=== PATIENT | female | born 1970 | race Caucasian/White ===

== ENCOUNTER 2017-05-14 18:43 | Emergency (ER) | payer BC, OTHER ==
[~2017-05-14] VITALS: Ht 162.6 cm; Wt 55.0 kg
[~2017-05-14 18:43] MED LIST: CIPR500T4 PO; METR70GE15 VAG
[2017-05-14 19:09] VITALS: Ht 162.6 cm; Wt 55.0 kg
--- NOTE | 2017-05-14 19:45 | ERD ---
ER Documentation Chief Complaint Chief Complaint vag bleed x 5 days; pt denies being ; pt said this is not new ROS All systems reviewed and are negative except as per history of present illness. Medications Home Meds Active Scripts Metronidazole* (Metrogel* Vaginal) 0.75% -70 Gram Gel.w.appl, 1 APPFUL VAG HS for 5 Days, TUB Prov:CAROLE FAJARDO PA-C 11/24/15 Ciprofloxacin Hcl* (Ciprofloxacin Hcl*) 500 Mg Tablet, 500 MG PO BID for 3 Days , TAB Prov:CAROLE FAJARDO PA-C 11/24/15 Allergies Allergies: Coded Allergies: No Known Allergy (Unverified , 11/24/15) PMhx/Soc Medical and Surgical Hx: pt denies Medical Hx, pt denies Surgical Hx History of Surgery: Yes (CSECTION) Anesthesia Reaction: No Hx Neurological Disorder: No Hx Respiratory Disorders: No Hx Cardiac Disorders: No Hx Psychiatric Problems: No Hx Miscellaneous Medical Probl: No Hx Alcohol Use: No Hx Substance Use: No Hx Tobacco Use: No Smoking Status: Never smoker Physical Exam Vitals Vital Signs Date Time Temp Pulse Resp B/P Pulse Ox O2 Delivery O2 Flow Rate FiO2 05/14/17 19:09 98.4 98 20 105/77 100 Result Diagram: 05/14/17203405/14/172034 Results 24 hrs Laboratory Tests Test 05/14/17 20:00 05/14/17 20:35 Urine Color YELLOW Urine Clarity CLEAR Urine pH 5.0 Urine Specific [place] 1.017 Urine Ketones 1+mg/dL Urine Nitrite NEGATIVEmg/dL Urine Bilirubin NEGATIVEmg/dL Urine Urobilinogen NEGATIVEmg/dL Urine Leukocyte Esterase NEGATIVELeu/ul Urine Microscopic RBC > 182/HPF Urine Microscopic WBC 6/HPF Urine Mucus FEW/HPF Urine Hemoglobin 3+mg/dL Urine Glucose NEGATIVEmg/dL Urine Total Protein 1+mg/dl White Blood Count 9.610^3/ul Red Blood Count 1.9010^6/ul Hemoglobin 5.5g/dl Hematocrit 17.1% Mean Corpuscular Volume 90.0fl Mean Corpuscular Hemoglobin 28.9pg Mean Corpuscular Hemoglobin Concent 32.2g/dl Red Cell Distribution Width 20.9% Platelet Count 88204^3/UL Mean Platelet Volume 10.1fl Neutrophils % % Lymphocytes % % Monocytes % % Eosinophils % % Basophils % % Nucleated Red Blood Cells % 0.0/100WBC Neutrophils # 10^3/ul Lymphocytes # 10^3/ul Monocytes # 10^3/ul Eosinophils # 10^3/ul Basophils # 10^3/ul Nucleated Red Blood Cells # 10^3/ul Prothrombin Time 14.6Sec Prothrombin Time Ratio 1.1 INR International Normalized Ratio 1.14 Activated Partial Thromboplast Time 20.0Sec Sodium Level 132mmol/L Potassium Level 4.2mmol/L Chloride Level 102mmol/L Carbon Dioxide Level 14mmol/L Anion Gap 20 Blood Urea Nitrogen 9mg/dl Creatinine 0.69mg/dl Glucose Level 143mg/dl Calcium Level 8.3mg/dl Current Medications Medications (Trade) Dose Ordered Sig/Itz Route PRN Reason Start Time Stop Time Status Last Admin Dose Admin Sodium Chloride (NS) 1,000 ml @ 1,000 mls/hr Q1H ONCE IV 05/14/17 20:00 05/14/17 20:59 DC Estradiol Valerate (Delestrogen Inj) 20 mg ONCE ONCE IM 05/14/17 21:30 05/14/17 21:31 Departure Diagnosis: Primary Impression: Vaginal bleeding JAYRO TAMAYO PA-C May 14, 2017 19:45
[2017-05-14] MEDS ORDERED: SOD CHLORIDE 0.9% 1,000 ML IV ONE (20:00)
--- NOTE | 2017-05-14 20:19 | RADRPT ---
PROCEDURE: US Pelvis. CLINICAL INDICATION: Abnormal vaginal bleeding. TECHNIQUE: The pelvis was evaluated with transabdominal and transvaginal sonography in the axial a nd sagittal planes. COMPARISON: CT scan of the abdomen and pelvis dated 05/11/2012. FINDINGS: Uterus: 8.2 x 4.5 x 5.3 cm. Endometrium: 10.8 mm. Right ovary: 3.2 x 2.1 x 2.2 cm. Left ovary: 3.2 x 1.7 x 1.3 cm. Uterine masses: The uterus is heterogeneous with multiple small fibroids. The largest fibroid measur es 3.2 cm in maximal dimension. Ovarian masses: None. Color Doppler and pulsed Doppler sonography demonstrate normal flow to the ova kurt. Other pelvic masses: None. Free fluid: A small amount of free fluid is present in the pelvis. IMPRESSION: 1. Diffusely heterogeneous uterus with multiple small fibroids. The largest fibroid measures 3.2 cm . 2. Small amount of free fluid in the pelvis. 3. Otherwise unremarkable pelvic ultrasound. RPTAT: QQ .Aramis Mckeon MD, Date Time Electronically viewed and signed by .Aramis Mckeon MD, MD on 05/14/2017 20:18 .R/
[2017-05-14 20:55] LABS: ABNORMAL IP MESSAGE 1; HEMATOCRIT 17.1 % (37.0-47.0); MEAN CORPUSCULAR HEMOGLOBIN 28.9 pg (29.0-33.0); MEAN CORPUSCULAR HGB CONC 32.2 g/dl (32.0-37.0); MEAN PLATELET VOLUME 10.1 fl (7.4-10.4); PLATELET COUNT 194 10^3/UL (140-415); RED CELL DISTRIBUTION WIDTH 20.9 % (11.5-14.5); WHITE BLOOD COUNT 9.6 10^3/ul (4.8-10.8)
[2017-05-14 20:58] LABS: HEMOGLOBIN 5.5 g/dl (12.0-16.0); POSITIVE DIFF @See below
[2017-05-14 20:59] LABS: ADD UMIC YES; UR ASCORBIC ACID 20 mg/dL (NEGATIVE); UR BILIRUBIN (Dip) NEGATIVE (NEGATIVE); UR BLOOD (Dip) 3+ mg/dL (NEGATIVE); UR CLARITY CLEAR (CLEAR); UR COLOR YELLOW (YELLOW); UR GLUCOSE (Dip) NEGATIVE (NEGATIVE); UR KETONES (Dip) 1+ mg/dL (NEGATIVE); UR LEUKOCYTE ESTERASE (Dip) NEGATIVE Leu/ul (NEGATIVE); UR MUCUS FEW /HPF (NONE SEEN); UR NITRITE (Dip) NEGATIVE (NEGATIVE); UR RBC > 182 /HPF (0-5); UR SPECIFIC GRAVITY (Dip) 1.017 (1.003-1.030); UR TOTAL PROTEIN (Dip) 1+ mg/dl (NEGATIVE); UR UROBILINOGEN (Dip) NEGATIVE (NEGATIVE)
[2017-05-14 21:07] LABS: INR 1.14; PROTIME 14.6 Sec (12.2-14.2); PT RATIO 1.1
[2017-05-14 21:10] LABS: CALCIUM 8.3 mg/dl (8.4-10.2); CREATININE 0.69 mg/dl (0.44-1.00); POTASSIUM 4.2 mmol/L (3.5-5.1)
--- NOTE | 2017-05-14 21:27 | ERD ---
ER Documentation Chief Complaint Chief Complaint vag bleed x 5 days; pt denies being ; pt said this is not new HPI This a 47-year-old female who is complaining of heavy vaginal bleeding for 5 days. Patient is a history of menometrorrhagia for nearly a year. Patient scheduled tomorrow for uterine biopsy. The patient's states she has been feeling weak and dizzy over the past several weeks. She states that she is having occasional cramps. She states that she is having no back pain no falls or syncope. No chest pain or shortness of breath no dyspnea on exertion ROS All systems reviewed and are negative except as per history of present illness. Medications Home Meds Active Scripts Metronidazole* (Metrogel* Vaginal) 0.75% -70 Gram Gel.w.appl, 1 APPFUL VAG HS for 5 Days, TUB Prov:CAROLE FAJARDO PA-C 11/24/15 Ciprofloxacin Hcl* (Ciprofloxacin Hcl*) 500 Mg Tablet, 500 MG PO BID for 3 Days , TAB Prov:CAROLE FAJARDO PA-C 11/24/15 Allergies Allergies: Coded Allergies: No Known Allergy (Unverified , 11/24/15) PMhx/Soc Medical and Surgical Hx: pt denies Medical Hx, pt denies Surgical Hx History of Surgery: Yes (CSECTION) Anesthesia Reaction: No Hx Neurological Disorder: No Hx Respiratory Disorders: No Hx Cardiac Disorders: No Hx Psychiatric Problems: No Hx Miscellaneous Medical Probl: No Hx Alcohol Use: No Hx Substance Use: No Hx Tobacco Use: No Smoking Status: Never smoker FmHx Family History: No coronary disease Physical Exam Vitals Vital Signs Date Time Temp Pulse Resp B/P Pulse Ox O2 Delivery O2 Flow Rate FiO2 05/14/17 21:55 98.1 81 19 106/70 100 Room Air 05/14/17 19:09 98.4 98 20 105/77 100 Physical Exam Const: Well-developed, well-nourished Head: Atraumatic, normocephalic Eyes: Normal Conjunctiva, PERRLA, EOMI, normal sclera, no nystagmus ENT: Normal External Ears, Nose and Mouth, moist mucus membranes. Neck: Full range of motion. No meningismus, no lymphadenopathy. Resp: Clear to auscultation bilaterally, no wheezing, rhonchi, rales Cardio: Regular rate and rhythm, no murmurs, S1 S2 present Abd: Soft, mild pelvic tenderness non distended. Normal bowel sounds, no guarding or rebound, no pulsitile abdominal masses or bruits Skin: No petechiae or rashes, no ecchymosis , no maculopapular rash Back: No midline or flank tenderness Ext: No cyanosis, or edema, FROM x 4, normal inspection, neurovascularly intact x 4 Neur: Awake and alert, STR 5/5 x 4, sensation intact x 4, no focal findings, cerebellum intact Psych: Normal Mood and Affect Result Diagram: 05/14/17203405/14/172034 Results 24 hrs Laboratory Tests Test 05/14/17 20:00 05/14/17 20:35 Urine Color YELLOW Urine Clarity CLEAR Urine pH 5.0 Urine Specific [place] 1.017 Urine Ketones 1+mg/dL Urine Nitrite NEGATIVEmg/dL Urine Bilirubin NEGATIVEmg/dL Urine Urobilinogen NEGATIVEmg/dL Urine Leukocyte Esterase NEGATIVELeu/ul Urine Microscopic RBC > 182/HPF Urine Microscopic WBC 6/HPF Urine Mucus FEW/HPF Urine Hemoglobin 3+mg/dL Urine Glucose NEGATIVEmg/dL Urine Total Protein 1+mg/dl White Blood Count 9.610^3/ul Red Blood Count 1.9010^6/ul Hemoglobin 5.5g/dl Hematocrit 17.1% Mean Corpuscular Volume 90.0fl Mean Corpuscular Hemoglobin 28.9pg Mean Corpuscular Hemoglobin Concent 32.2g/dl Red Cell Distribution Width 20.9% Platelet Count 66763^3/UL Mean Platelet Volume 10.1fl Neutrophils % % Segmented Neutrophils % (Manual) 83% Lymphocytes % % Lymphocytes % (Manual) 16% Monocytes % % Monocytes % (Manual) 1% Eosinophils % % Basophils % % Nucleated Red Blood Cells % 0.0/100WBC Neutrophils # 10^3/ul Absolute Lymphocytes (Manual) 1.510^3/ul Lymphocytes # 10^3/ul Monocytes # 10^3/ul Absolute Monocytes (Manual) 0.010^3/ul Eosinophils # 10^3/ul Basophils # 10^3/ul Nucleated Red Blood Cells # 10^3/ul Platelet Estimate NORMAL Polychromasia 1+ Hypochromasia 1+ Anisocytosis 1+ Microcytosis 1+ Prothrombin Time 14.6Sec Prothrombin Time Ratio 1.1 INR International Normalized Ratio 1.14 Activated Partial Thromboplast Time 20.0Sec Sodium Level 132mmol/L Potassium Level 4.2mmol/L Chloride Level 102mmol/L Carbon Dioxide Level 14mmol/L Anion Gap 20 Blood Urea Nitrogen 9mg/dl Creatinine 0.69mg/dl Glucose Level 143mg/dl Calcium Level 8.3mg/dl Current Medications Medications (Trade) Dose Ordered Sig/Itz Route PRN Reason Start Time Stop Time Status Last Admin Dose Admin Sodium Chloride (NS) 1,000 ml @ 1,000 mls/hr Q1H ONCE IV 05/14/17 20:00 05/14/17 20:59 DC 05/14/17 20:00 Estradiol Valerate (Delestrogen Inj) 20 mg ONCE ONCE IM 05/14/17 21:30 05/14/17 21:30 DC Estradiol Valerate (Delestrogen Inj) 20 mg ONCE ONCE IM 05/14/17 21:30 05/14/17 21:31 DC 05/14/17 22:02 Procedures/MDM PROCEDURE: US Pelvis. CLINICAL INDICATION: Abnormal vaginal bleeding. TECHNIQUE: The pelvis was evaluated with transabdominal and transvaginal sonography in the axial and sagittal planes. COMPARISON: CT scan of the abdomen and pelvis dated 05/11/2012. FINDINGS: Uterus: 8.2 x 4.5 x 5.3 cm. Endometrium: 10.8 mm. Right ovary: 3.2 x 2.1 x 2.2 cm. Left ovary: 3.2 x 1.7 x 1.3 cm. Uterine masses: The uterus is heterogeneous with multiple small fibroids. The largest fibroid measures 3.2 cm in maximal dimension. Ovarian masses: None. Color Doppler and pulsed Doppler sonography demonstrate normal flow to the ovaries. Other pelvic masses: None. Free fluid: A small amount of free fluid is present in the pelvis. IMPRESSION: 1. Diffusely heterogeneous uterus with multiple small fibroids. The largest fibroid measures 3.2 cm. 2. Small amount of free fluid in the pelvis. 3. Otherwise unremarkable pelvic ultrasound. RPTAT: QQ .Aramis Mckeon MD, MD Date Time Electronically viewed and signed by .Aramis Mckeon MD, MD on 05/14/2017 20:18 .R/ CC: JAYRO TAMAYO PA-C We will give some IM estrogen here. We will also give 2 units of packed red blood cells. After this the patient was discharged because she has follow-up with her OB GEN tomorrow, per her VB decreasing. Departure Diagnosis: Primary Impression: Dysfunctional uterine bleeding Additional Impression: Anemia Anemia type: unspecified type Qualified Code: D64.9 - Anemia, unspecified type Condition: Stable JOHN WEINBERG DO May 14, 2017 21:27
[2017-05-14 21:28] LABS: ANISOCYTOSIS 1+ (0-0); HYPOCHROMASIA 1+ (0-0); MICROCYTOSIS 1+ (0-0); MONOCYTES % (M) 1 % (0-11); PLATELET ESTIMATE NORMAL; POLYCHROMASIA 1+ (0-0)
[2017-05-14] MEDS ORDERED: ESTRADIOL VALERATE 20 MG/0.5 ML INJ IM ONE ×2 (21:30)
[2017-05-14] MEDS ORDERED: NORG1TAB14 PO (23:21)
[2017-05-15 02:31] VITALS: BP 101/59; PULSE 94; RESP 18; TEMP 98.3
== END 2017-05-15 02:34 | disposition home or self-care (01) ==
LOC: FTE 18:43
DX: N93.8 Other specified abnormal uterine and vaginal bleeding (principal); D64.9 Anemia, unspecified; R07.9 Chest pain, unspecified
CPT/HCPCS: 36430; 76856; 80048; 81001; 85025; 85610; 85730; 86850; 86900; 86901; 86920; 96372; 99285; J7030; P9016; J1380

== ENCOUNTER 2018-12-20 23:15 | Inpatient (IN) | payer BC ==
[~2018-12-20] VITALS: Ht 144.8 cm; Wt 58.3 kg
[~2018-12-20 23:15] MED LIST changes: +NORG1TAB14 PO
[2018-12-20] MEDS ORDERED: SOD CHLORIDE 0.9% 500 ML IV STA (23:55)
[2018-12-21] MEDS ORDERED: SOD CHLORIDE 0.9% 0 ML IV ONE (00:25)
--- NOTE | 2018-12-21 00:35 | ERD ---
ER Documentation Chief Complaint Chief Complaint DIZZINESS X TODAY. HPI This is a 48-year-old female with a past medical history of uterine fibroids with previous episodes of significant uterine bleeding and anemia, currently on control who is now presenting for 2 days of significant heavy menstrual bleeding with associated lightheadedness today. The patient feels generally weak and fatigued. She is concerned about the amount of bleeding that she has had. The patient does not believe she could be . She does not believe she could have a sexually transmitted infection. The patient does not endorse dysuria or hematuria or urgency or frequency. She denies constipation or diarrhea. She denies black or bloody or tarry stools. The patient denies feeling sick recently. The patient denies fever or chills. The patient has had no headache or vision changes. The patient does not endorse neck or back pain. The patient has had no chest pain or trouble breathing. The patient denies nausea or vomiting. She denies diaphoresis. The patient has had no focal deficits. The patient has had no weakness or numbness or tingling to the face or extremities. ROS All systems reviewed and are negative except as per history of present illness. Medications Home Meds Active Scripts Norgestimate-Ethinyl Estradiol (Sprintec 28 Day Tablet) 1 Each Tablet, 2 EACH PO BID for 3 Days, TAB 2 po BID x 3 days, then 1 po QD, Skip the last week of pills and restart new pack at 1 po QD Prov:JOHN WEINBERG DO 05/14/17 Metronidazole* (Metrogel* Vaginal) 0.75% -70 Gram Gel.w.appl, 1 APPFUL VAG HS for 5 Days, TUB Prov:CAROLE FAJARDO PA-C 11/24/15 Ciprofloxacin Hcl* (Ciprofloxacin Hcl*) 500 Mg Tablet, 500 MG PO BID for 3 Days, TAB Prov:CAROLE FAJARDO PA-C 11/24/15 Allergies Allergies: Coded Allergies: No Known Allergy (Unverified , 11/24/15) PMhx/Soc History of Surgery: Yes (CSECTION) Anesthesia Reaction: No Hx Neurological Disorder: No Hx Respiratory Disorders: No Hx Cardiac Disorders: No Hx Psychiatric Problems: No Hx Miscellaneous Medical Probl: Yes (FIBROIDS) Hx Alcohol Use: No Hx Substance Use: No Hx Tobacco Use: No Smoking Status: Never smoker FmHx Family History: No diabetes Physical Exam Vitals Vital Signs Date Temp Pulse Resp B/P (MAP) Pulse Ox O2 O2 Flow FiO2 Time Delivery Rate 12/21/18 84 18 105/67 Room Air 00:00 (80) 12/20/18 98.4 97 18 121/67 98 23:25 (85) Physical Exam Const: No apparent distress, well-developed, well-nourished Head: Normocephalic, Atraumatic Eyes: Conjunctival pallor. Extraocular movements grossly intact. Pupils equal, round and reactive to light ENT: Normal External Ears, Nose and Mouth. Neck: Full range of motion. No meningismus. Resp: Clear to auscultation bilaterally, No wheezes, rales or rhonchi Cardio: Regular rate and rhythm. No murmurs, rubs or gallops Abd: Soft, non distended. Mild suprapubic fullness and tenderness. Normal bowel sounds Skin: No petechiae or rashes Back: No midline tenderness. No CVA tenderness Ext: No cyanosis, or edema Neur: Awake and alert, oriented 4. Cranial nerves intact. No facial droop. Normal strength, sensation and coordination. Psych: Normal Mood and Affect Result Diagram: 12/21/18 0004 12/21/18 0004 Results 24 hrs Laboratory Tests Test 12/21/18 00:04 12/21/18 00:11 White Blood Count 7.8 10^3/ul Red Blood Count 2.32 10^6/ul Hemoglobin 6.7 g/dl Hematocrit 19.8 % Mean Corpuscular Volume 85.3 fl Mean Corpuscular Hemoglobin 28.9 pg Mean Corpuscular Hemoglobin Concent 33.8 g/dl Red Cell Distribution Width 15.4 % Platelet Count 240 10^3/UL Mean Platelet Volume 9.9 fl Immature Granulocytes % 1.000 % Neutrophils % 46.6 % Lymphocytes % 40.7 % Monocytes % 8.6 % Eosinophils % 2.3 % Basophils % 0.8 % Nucleated Red Blood Cells % 0.0 /100WBC Immature Granulocytes # 0.080 10^3/ul Neutrophils # 3.6 10^3/ul Lymphocytes # 3.2 10^3/ul Monocytes # 0.7 10^3/ul Eosinophils # 0.2 10^3/ul Basophils # 0.1 10^3/ul Nucleated Red Blood Cells # 0.0 10^3/ul Pathologist Review (Hematology) YES-PATH TO CONFIRM Prothrombin Time 13.1 Sec Prothrombin Time Ratio 1.0 INR International Normalized Ratio 0.98 Activated Partial Thromboplast Time Pending Sodium Level 137 mmol/L Potassium Level 3.6 mmol/L Chloride Level 105 mmol/L Carbon Dioxide Level 22 mmol/L Anion Gap 10 Blood Urea Nitrogen 9 mg/dl Creatinine 0.60 mg/dl Est Glomerular Filtrat Rate mL/min > 60 mL/min Glucose Level 120 mg/dl Calcium Level 8.4 mg/dl POC Beta HCG, Qualitative NEGATIVE Current Medications Medications Dose Sig/Itz Start Time Status Last (Trade) Ordered Route PRN Stop Time Admin Dose Reason Admin Sodium 500 ml @ Q1H STAT 12/20/18 DC 12/21/18 Chloride 500 mls/hr IV 23:55 12/21/18 00:00 00:54 Sodium 0 ml @ 0 Q0M ONCE 12/21/18 DC 12/21/18 Chloride mls/hr IV 00:25 12/21/18 02:04 00:27 Ondansetron 4 mg BRIDGE ORDER 12/21/18 HCl (Zofran PRN IV 01:00 12/22/18 Inj) NAUSEA/VOMITI 00:59 NG 650 mg ER BRIDGE 12/21/18 Acetaminophen PRN PO 01:00 12/22/18 (Tylenol .MILD PAIN 00:59 Tab) 1-3 OR TEMP Procedures/MDM MDM The patient's presentation warrants further investigation. Previous medical records, if available, were reviewed. LABS The patient's laboratory testing was obtained and reviewed. No emergent treatment was required unless described below. CBC: No E/o systemic infection or thrombocytopenia. Normocytic anemia, likely from blood loss anemia from her vaginal bleeding. Chemistry: No E/o severe acidosis or alkalosis or renal failure or diabetic ketoacidosis PT/INR: No E/o significant coagulopathy hCG: Negative Type & screen: Sent EKG EKG read by me: Rate/Rhythm: Regular rate and rhythm at a rate of 88 bpm Intervals: Normal [place]: Normal Impression: No evidence of acute ischemia or arrhythmia IMAGING Imaging and Radiology interpretation reviewed. US Pelvis Pending TREATMENT/DISPOSITION The patient presents for symptoms of near syncope, which is likely associated with her symptomatic anemia from vaginal bleeding. The patient does have a history of fibroids. The patient does require blood transfusion. She was consented and the transfusion was ordered. The patient will require gynecology evaluation. Dr. Kang of Gynecology was consulted. The results of the pelvic ultrasound are currently pending. ADMISSION At this time, I feel that the patient requires admission for further evaluation and management. The patient will be admitted to Dr. Givens in accordance with the patient's insurance. The patient was accepted to Med Surg 12:50 AM. Disclaimer: Inadvertent spelling and grammatical errors are likely due to [employer] R/dictation software use and do not reflect on the overall quality of patient care. Note that the electronic time recorded on this note does not necessarily reflect the actual time of the patient encounter. Departure Diagnosis: Primary Impression: Near syncope Additional Impressions: Symptomatic anemia Vaginal bleeding Lightheadedness Normocytic anemia History of uterine fibroid Condition: MIHAI Clemens MD Dec 21, 2018 00:35
[2018-12-21] MEDS ORDERED: ACETAMINOPHEN 325 MG TAB PO PRN ×2 (01:00→03:30)
[2018-12-21] MEDS ORDERED: ONDANSETRON 4 MG INJ IV PRN (01:00)
[2018-12-21 02:49] VITALS: Ht 144.8 cm; Wt 58.3 kg
[2018-12-21] MEDS ORDERED: IBUP-1545 PO (03:13)
[2018-12-21] MEDS ORDERED: HYDROCODONE/APAP (5/325) TAB PO PRN (03:30)
[2018-12-21 03:33] VITALS: BP 152/73; PULSE 103; RESP 19
--- NOTE | 2018-12-21 06:17 | CONS ---
Assessment/Plan Assessment/Plan Problems: (1) Normocytic anemia Status: Acute (2) History of uterine fibroid Status: Acute (3) Lightheadedness Status: Acute (4) Vaginal bleeding Status: Acute (5) Near syncope Status: Acute (6) Symptomatic anemia Status: Acute Assessment/Plan (Daily) 1. Severe anemia due to menometrorrhagia . Patient failed medical management with OCP, ultrasound finding consistent with possible submucosal fibroid Receiving blood transfusion due to symptomatic anemia Candidate for D&C with possible hysteroscopy and resection of fibroid Plan of care discussed with the patient. Risks and benefits of surgery discussed with patient including risk of infection, bleeding, damage to surrounding structures as well as risk of uterine perforation and risk of blood transfusion as well as risk of need for additional surgical management, risk of scar, pain, anesthesia as well as risk of blood transfusion including but not limited to blood borne infection including HIV, hepatitis B and C and transfusion reaction discussed with patient in detail Patient verbalized understanding all above risks she consented verbally for proc edure We will keep the patient n.p.o. Will attempt Megace 20 mg 3 times daily with sip of water to control the bleeding Candidate for hysteroscopy, D&C and resection of fibroid I discussed with the patient about the plan of care. If bleeding continues heavily still might need to proceed with the OR urgently if not consider above procedure after completion of blood transfusion Dr. Silver is the Primary POWER LINE LINEMAN, will be notified, patient understands her case will be signed out to the upcoming OB hospitalist as well for follow-up and above said procedure may be done by [facility] hospitalist in case of urgency. All questions were answered to patient with satisfaction. We are checking thyroid labs to rule out hyperthyroidism, as a cause for menometrorrhagia Consultation Date/Type/Reason Admit Date/Time Dec 21, 2018 at 00:54 Date of Consultation: Dec 21, 2018 Type of Consult Gynecology consultation Date/Time of Note DATE: 12/21/18 TIME: 06:09 Hx of Present Illness 48-year-old G1, P2 premenopausal female presented to emergency room with complaint of fatigue and dizziness and lightheadedness after she had worsening menometrorrhagia for the last 3 to 4 days. She was seen at her PCP office and advised to go to emergency room for blood transfusion. Patient reports this is her second episode of emergency room visit recently. Reports history of menometrorrhagia for the past 1 and half years. Status post endometrial biopsy with her prior records [facility] about 1 and half years ago that per patient was benign. Patient currently receiving blood transfusion due to hemoglobin 6.7 noted in the ED at the time of admission. Patient reports improvement in her symptoms. Patient denies any known history of thyroid problem in the past. Reports history of fibroids. Had a pelvic ultrasound in this facility that showed evidence of heterogeneous endometrium as well as intrauterine mass 2.7 cm questionable for possible submucosal fibroid. Constitutional: no complaints, improved; No chills, No diaphoresis, No disoriented, No febrile, No poor po, No requi ring IVF, No requiring O2, No other Eyes: No no complaints, No pain, No discharge, No redness, No visual change, No other ENT: No no complaints, No bleeding, No pain, No congestion, No discharge, No dysphagia, No sore throat, No other Respiratory: No no complaints, No pain, No cough, No pleuritic pain, No shortness of breath, No sputum, No wheezing, No other Cardiovascular: No no complaints, No chest pain, No edema, No lightheadedness, No orthopenea, No palpitations, No paroxysmal nocturnal dyspnea, No other Gastrointestinal: No no complaints, No pain, No blood, No constipation, No d ecreased appetite, No diarrhea, No flatus, No nausea, No passing stool, No vomiting, No other Genitourinary: bleeding; No no complaints, No dysuria, No discharge, No flank pain, No hematuria, No other Musculoskeletal: No no complaints, No back pain, No bone/joint pain, No neck pain, No restricted range of motion, No swelling, No other Skin: No no complaints, No bruising, No erythema, No laceration, No pruritis, No rash, No skin lesions, No other Neurologic: No no complaints, No confusion, No dizziness, No focal-weakness, No headache, No syncope, No seizure, No other Endocrine: No no complaints, No polyuria, No polydypsia, No dry skin, No temp intolerance, No other Lymphatic: No no complaints, No adenopathy, No tender nodes, No lymphadema, No other Psychological: No no complaints, No nl mood/affect, No anxiety, No confusion, No depression, No suicidal, No other Immunologic: No no complaints, No immunodeficiency, No pruritis, No rhinitis, No urticaria, No other Past Medical History She reports history of anemia menometrorrhagia Reports history of fibroid Home Meds Active Scripts Norgestimate-Ethinyl Estradiol (Sprintec 28 Day Tablet) 1 Each Tablet, 2 EACH PO BID for 3 Days, TAB 2 po BID x 3 days, then 1 po QD, Skip the last week of pills and restart new pack at 1 po QD Prov:JOHN WEINBERG DO 05/14/17 Metronidazole* (Metrogel* Vaginal) 0.75% -70 Gram Gel.w.appl, 1 APPFUL VAG HS for 5 Days, TUB Prov:CAROLE FAJARDO PA-C 11/24/15 Ciprofloxacin Hcl* (Ciprofloxacin Hcl*) 500 Mg Tablet, 500 MG PO BID for 3 Days, TAB Prov:CAROLE FAJARDO PA-C 11/24/15 Reported Medications Ibuprofen* (Ibuprofen*) 800 Mg Tab, 800 MG PO Q6H PRN for PAIN, TAB 12/21/18 Medications Current Medications Ondansetron HCl (Zofran Inj) 4 mg BRIDGE ORDER PRN IV NAUSEA/VOMITING; Start 12/21/18 at 01:00; Stop 12/22/18 at 00:59 Acetaminophen (Tylenol Tab) 650 mg ER BRIDGE PRN PO .MILD PAIN 1-3 OR TEMP; Start 12/21/18 at 01:00; Stop 12/22/18 at 00:59 Acetaminophen (Tylenol Tab) 650 mg Q4H PRN PO MILD PAIN(1-3)OR ELEVATED TEMP; Start 12/21/18 at 03:30 Acetaminophen/ Hydrocodone Bitart ([place] (5/325)) 1 tab Q4H PRN PO MODERATE PAIN LEVEL 4-6; Start 12/21/18 at 03:30 Allergies: Coded Allergies: No Known Allergy (Unverified , 11/24/15) Past Surgical History Status post section for twin in the past Family History Significant Family History: no pertinent family hx Social History Alcohol Use: occasionally Smoking Status: Never smoker Drug Use: none Exam/Review of Systems Exam Vitals Vital Signs Date Temp Pulse Resp B/P (MAP) Pulse Ox O2 O2 Flow FiO2 Time Delivery Rate 12/21/18 98.8 103 19 152/73 99 03:33 (99) 12/21/18 Room Air 02:18 Intake and Output 12/20/18 12/20/18 12/21/18 1515:00 23:00 07:00 IntakeIntake Total 550 ml BalanceBalance 550 ml Constitutional: alert, oriented, well developed Psych: no complaints, nl mood/affect Head: normocephalic, atraumatic Eyes: nl conjunctiva, EOMI, nl lids ENMT: nl external ears & nose, nl lips & teeth, nl nasal mucosa & septum Neck: supple, non-tender Respiratory: clear to auscultation, normal air movement Cardiovascular: regular rate and rhythm, nl pulses Gastrointestinal: soft, nl liver, spleen, non-tender Genitourinary - Female: nl adnexae, nl external genitalia Musculoskeletal: nl extremities to inspection, nl gait and stance Extremities: normal pulses Neurological: FUEL CELL TECHNICIAN II-XII intact, nl mental status, nl speech, nl strength Skin: nl turgor, rash or lesions Results Result Diagram: 12/21/18 0004 12/21/18 0004 Results 24hrs Laboratory Tests Test 12/21/18 00:04 12/21/18 00:11 White Blood Count 7.8 Red Blood Count 2.32 #L Hemoglobin 6.7 #*L Hematocrit 19.8 L Mean Corpuscular Volume 85.3 Mean Corpuscular Hemoglobin 28.9 L Mean Corpuscular Hemoglobin Concent 33.8 Red Cell Distribution Width 15.4 #H Platelet Count 240 # Mean Platelet Volume 9.9 Immature Granulocytes % 1.000 H Neutrophils % 46.6 Segmented Neutrophils % (Manual) 60 Lymphocytes % 40.7 Lymphocytes % (Manual) 35 Monocytes % 8.6 Monocytes % (Manual) 3 Eosinophils % 2.3 Eosinophils % (Manual) 2 Basophils % 0.8 Nucleated Red Blood Cells % 0.0 Immature Granulocytes # 0.080 H Neutrophils # 3.6 Lymphocytes (Manual) 2.7 Lymphocytes # 3.2 H Monocytes # 0.7 Monocytes # (Manual) 0.2 L Eosinophils # 0.2 Basophils # 0.1 Nucleated Red Blood Cells # 0.0 Pathologist Review (Hematology) YES-PATH TO CONFIRM Platelet Estimate NORMAL Giant Platelets 1 H Polychromasia 1+ Anisocytosis 1+ Prothrombin Time 13.1 Prothrombin Time Ratio 1.0 INR International Normalized Ratio 0.98 Activated Partial Thromboplast Time 20.0 L Sodium Level 137 Potassium Level 3.6 Chloride Level 105 Carbon Dioxide Level 22 Anion Gap 10 Blood Urea Nitrogen 9 Creatinine 0.60 Est Glomerular Filtrat Rate mL/min > 60 Glucose Level 120 Calcium Level 8.4 POC Beta HCG, Qualitative NEGATIVE PROCEDURE: Pelvic ultrasound color-flow Doppler of the adnexa. CLINICAL INDICATION: Vaginal bleeding TECHNIQUE: Multiple sagittal, oblique and transverse real time images were obtained of the lower abdomen and pelvis using a transabdominal as well a transvaginal approach. Color-flow Doppler of the adnexa was performed COMPARISON: Pelvic ultrasound 05/14/2017 FINDINGS: The uterus is enlarged measuring 9.91 x 4.59 x 5.19 cm. Myometrial echoes are heterogeneous with multiple leiomyomas the largest measuring 3.7 cm. Note that the endometrium is heterogeneous and thickened maximal AP diameter 1.51 cm. In addition within the endometrium is a 2.8 x 1.6 cm globular heterogeneous echogenic structure with increased vascularity likely a polyp. A pedunculated leiomyoma extending into the endometrium cannot be excluded. Recommend consideration of a pelvic MRI or hysterosonogram for further evaluation. Additional trace fluid within the endometrial canal. The ovaries are normal in size the right measuring 2.68 x 1.52 x 2.01 cm and the left measuring 2.6 x 1.3 x 1.61 cm. No ovarian masses. Flow to both ovaries without ultrasonic evidence of ovarian torsion. No adnexal masses or free fluid. IMPRESSION: 1. Enlarged heterogeneous uterus with multiple leiomyomas the largest measuring 3.7 cm. 2. Heterogeneous endometrium with trace fluid and a Z globular inhomogeneous vascular structure measuring 2.8 x 1.6 cm that may represent a polyp or pedunculated leiomyoma. Other etiologies cannot be excluded. Recommend consideration of an MRI of the pelvis or hysterosonogram for further evaluation. 3. Normal size ovaries without masses or ultrasonic evidence of ovarian torsion. 4. No adnexal masses or free fluid. Medications Medication Current Medications Ondansetron HCl (Zofran Inj) 4 mg BRIDGE ORDER PRN IV NAUSEA/VOMITING; Start 12/21/18 at 01:00; Stop 12/22/18 at 00:59 Acetaminophen (Tylenol Tab) 650 mg ER BRIDGE PRN PO .MILD PAIN 1-3 OR TEMP; Start 12/21/18 at 01:00; Stop 12/22/18 at 00:59 Acetaminophen (Tylenol Tab) 650 mg Q4H PRN PO MILD PAIN(1-3)OR ELEVATED TEMP; Start 12/21/18 at 03:30 Acetaminophen/ Hydrocodone Bitart ([place] (5/325)) 1 tab Q4H PRN PO MODERATE PAIN LEVEL 4-6; Start 12/21/18 at 03:30 VJ NEGRON MD Dec 21, 2018 06:17
[2018-12-21 08:00] VITALS: BP 126/69; PULSE 83; RESP 16
[2018-12-21] MEDS ORDERED: MEGESTROL 40 MG TAB PO ONE (09:00)
[2018-12-21] MEDS: SOD CHLORIDE 0.9% 1,000 ML IV SCH ×2 (10:07→23:40)
--- NOTE | 2018-12-21 10:19 | PN ---
Date/Time of Note Date/Time of Note DATE: 12/21/18 TIME: 10:18 OB Subjective Subjective Subjective 1. AUB 2. Anemia start TXA. CBC. PT/PTT/INR/Fibrinogen NPO monitor vb MILESTONE,RHYS ESPITIA Dec 21, 2018 10:19
[2018-12-21] MEDS ORDERED: TRANEXAMIC ACID 1GM/100ML(PMX) 100 ML IV SCH (10:30)
--- NOTE | 2018-12-21 12:06 | PN ---
Date/Time of Note Date/Time of Note DATE: 12/21/18 TIME: 12:06 OB Subjective Subjective Subjective Subjective: Patient denies any dizziness or shortness of breath. Her bleeding is relatively the same. Objective: Vital signs stable General: No apparent distress Cardiac: Regular rate rhythm Pulmonary: Clear to auscultation bilaterally Abdomen: Soft positive bowel sounds Genitalia: Normal Vagina: Dark red blood per vagina. No active bleeding noted. H/H 9.4/27.6 Assessment/plan: 1. Abnormal uterine bleeding Etiologies are inclusive but not limited to polyps, adenomyosis, leiomyoma, malignancy, coagulopathy, endometrial, ovarian dysfunction, iatrogenic, otherwise specified. Ultrasound with evidence of fibroids. Last endometrial biopsy over one year ago. Patient will require assessment of the endometrial ca vity via hysteroscopy D&C electively to be scheduled during her follow-up visit. Patient to be discharged home on medroxyprogesterone acetate 20 mg 3 times daily x7 days. She may follow-up with her primary call center receptionist or be referred to my clinic and be seen within the next 2 to 3 days. 2. Anemia acute blood losspatient has received 2 units of packed red blood cells. Vitals stable and within normal limits. No evidence of hypotension or tachycardia. Patient has received TXA x1. RHYS URIBE MD Dec 21, 2018 12:06
--- NOTE | 2018-12-21 12:07 | HP ---
Date/Time of Note Date/Time of Note DATE: 12/21/18 TIME: 12:03 Assessment/Plan VTE Prophylaxis [place] [facility] risk: 2 SCD applied ([place] [facility] Yes Pharmacological prophylaxis: other Pharm contraindication: other Lines/Catheters IV [facility] Type [facility] Saline Lock Urinary Cath still in place: No Assessment/Plan Assessment/Plan Near syncope- resolving Symptomatic anemia- Hgb 9.4 - sp 2 Units PRBC Vaginal bleeding - sp evaluation by LETTER STAMPING MACHINE OPERATOR - cont to monitor H/H Lightheadedness- none at present Normocytic anemia History of uterine fibroid Dw Dr Serna. Kaushal Lutz- [employer]OVER [employer] - discharge patient on Medoxyprogesterone and FU in clinic Result Diagram: 12/21/18 1037 12/21/18 1038 Results 24hrs Laboratory Tests Test 12/21/18 00:04 12/21/18 00:11 12/21/18 10:37 12/21/18 10:38 White Blood Count 7.8 9.7 # Red Blood Count 2.32 #L 3.30 #L Hemoglobin 6.7 #*L 9.4 #L Hematocrit 19.8 L 27.9 #L Mean Corpuscular 85.3 84.5 Volume Mean Corpuscular 28.9 L 28.5 L Hemoglobin Mean Corpuscular 33.8 33.7 Hemoglobin Concent Red Cell 15.4 #H 14.4 Distribution Width Platelet Count 240 # 205 Mean Platelet 9.9 10.0 Volume Immature 1.000 H 0.500 H Granulocytes % Neutrophils % 46.6 60.2 Segmented 60 Neutrophils % (Manual) Lymphocytes % 40.7 29.2 Lymphocytes % 35 (Manual) Monocytes % 8.6 8.5 Monocytes % 3 (Manual) Eosinophils % 2.3 0.9 Eosinophils % 2 (Manual) Basophils % 0.8 0.7 Nucleated Red 0.0 0.0 Blood Cells % Immature 0.080 H 0.050 H Granulocytes # Neutrophils # 3.6 5.9 Lymphocytes 2.7 (Manual) Lymphocytes # 3.2 H 2.8 Monocytes # 0.7 0.8 Monocytes # 0.2 L (Manual) Eosinophils # 0.2 0.1 Basophils # 0.1 0.1 Nucleated Red 0.0 0.0 Blood Cells # Pathologist YES-PATH Review (Hematology TO CONFIRM ) Platelet Estimate NORMAL Giant Platelets 1 H Polychromasia 1+ Anisocytosis 1+ Prothrombin Time 13.1 13.5 Prothrombin Time 1.0 1.1 Ratio INR International 0.98 1.02 Normalized Ratio Activated 20.0 L 20.[address] Time Sodium Level 137 138 Potassium Level 3.6 4.0 Chloride Level 105 109 Carbon Dioxide 22 22 Level Anion Gap 10 7 Blood Urea 9 6 L Nitrogen Creatinine 0.60 0.48 Est Glomerular > 60 > 60 Filtrat Rate mL/min Glucose Level 120 102 Calcium Level 8.4 7.8 L POC Beta HCG, NEGATIVE Qualitative Fibrinogen 222.0 HPI/ROS Admit Date/Time Admit Date/Time Dec 21, 2018 at 00:54 ROS HPI This is a 48-year-old female with a past medical history of uterine fibroids with previous episodes of significant uterine bleeding and anemia. Patient is currently on control pills and is admitted for 2 days of significant heavy menstrual bleeding with associated lightheadedness, general weak and fatigued. She is concerned about the amount of bleeding that she has had. The patient does not believe she could be . She does not believe she could have a sexually transmitted infection. The patient does not endorse dysuria or hematuria or urgency or frequency. She denies constipation or diarrhea. She denies black or bloody or tarry stools. The patient denies feeling sick recently. The patient denies fever or chills. The patient has had no headache or vision changes. The patient does not endorse neck or back pain. The patient has had no chest pain or trouble breathing. The patient denies nausea or vomiting. She denies diaphoresis. The patient has had no focal deficits. The patient has had no weakness or numbness or tingling to the face or extremities. Patient is admitted for further treatment/evaluation. 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 Medications Home Meds Active Scripts Norgestimate-Ethinyl Estradiol (Sprintec 28 Day Tablet) 1 Each Tablet, 2 EACH PO BID for 3 Days, TAB 2 po BID x 3 days, then 1 po QD, Skip the last week of pills and restart new pack at 1 po QD Prov:JOHN WEINBERG DO 05/14/17 Metronidazole* (Metrogel* Vaginal) 0.75% -70 Gram Gel.w.appl, 1 APPFUL VAG HS for 5 Days, TUB Prov:CAROLE FAJARDO PA-C 11/24/15 Ciprofloxacin Hcl* (Ciprofloxacin Hcl*) 500 Mg Tablet, 500 MG PO BID for 3 Days, TAB Prov:CAROLE FAJARDO PA-C 11/24/15 Allergies Allergies: Coded Allergies: No Known Allergy (Unverified , 11/24/15) PMhx/Soc History of Surgery: Yes (CSECTION) Anesthesia Reaction: No Hx Neurological Disorder: No Hx Respiratory Disorders: No Hx Cardiac Disorders: No Hx Psychiatric Problems: No Hx Miscellaneous Medical Probl: Yes (FIBROIDS) Hx Alcohol Use: No Hx Substance Use: No Hx Tobacco Use: No Smoking Status: Never smoker FmHx Family History: No diabetes Eyes: no complaints ENT: no complaints Respiratory: no complaints Cardiovascular: no complaints Gastrointestinal: no complaints Genitourinary: bleeding Musculoskeletal: no complaints Skin: no complaints Neurologic: no complaints Endocrine: no complaints Lymphatic: no complaints Psychological: nl mood/affect Immunologic: no complaints PMH/Family/Social Past Medical History Medications Current Medications Ondansetron HCl (Zofran Inj) 4 mg BRIDGE ORDER PRN IV NAUSEA/VOMITING; Start 12/21/18 at 01:00; Stop 12/22/18 at 00:59 Acetaminophen (Tylenol Tab) 650 mg ER BRIDGE PRN PO .MILD PAIN 1-3 OR TEMP; Start 12/21/18 at 01:00; Stop 12/22/18 at 00:59 Acetaminophen (Tylenol Tab) 650 mg Q4H PRN PO MILD PAIN(1-3)OR ELEVATED TEMP; Start 12/21/18 at 03:30 Acetaminophen/ Hydrocodone Bitart ([place] (5/325)) 1 tab Q4H PRN PO MODERATE PAIN LEVEL 4-6; Start 12/21/18 at 03:30 Sodium Chloride 1,000 ml @ 60 mls/hr [id number] IV Last administered on 12/21/18at 10:07; Admin Dose 60 MLS/HR; Start 12/21/18 at 10:00 Tranexamic Acid 100 ml @ 200 mls/hr ONCE IV Last administered on 12/21/18at 10:52; Admin Dose 200 MLS/HR; Start 12/21/18 at 10:30; Stop 12/21/18 at 16:00 Coded Allergies: No Known Allergy (Unverified , 11/24/15) Family History Significant Family History: no pertinent family hx Social History Alcohol Use: occasionally Smoking Status: Never smoker Drug Use: none Exam/Review of Systems Vital Signs Vitals Vital Signs Date Temp Pulse Resp B/P (MAP) Pulse Ox O2 O2 Flow FiO2 Time Delivery Rate 12/21/18 98 Room Air 10:00 12/21/18 98.6 83 16 126/69 08:00 (88) Intake and Output 12/20/18 12/20/18 12/21/18 1414:59 22:59 06:59 IntakeIntake Total 900 ml BalanceBalance 900 ml Exam Constitutional: alert, well developed Psych: nl mood/affect Head: normocephalic Eyes: nl lids, nl sclera ENMT: nl external ears & nose Neck: non-tender Respiratory: clear to auscultation Cardiovascular: nl pulses, other (s1s2) Gastrointestinal: soft, non-tender Musculoskeletal: joint tenderness, range of motion Extremities: edema Neurological: nl mental status, nl speech Lymph: nontender KRISTOFER MASON Dec 21, 2018 12:07
[2018-12-21 14:00] VITALS: BP 113/64; PULSE 75; RESP 17
[2018-12-21 20:08] VITALS: BP 138/73; PULSE 71; RESP 18
[2018-12-22 02:33] VITALS: BP 109/68; PULSE 71; RESP 20
[2018-12-22 08:00] VITALS: BP 140/83; PULSE 100; RESP 20
[2018-12-22] MEDS ORDERED: MEDR10TA9 PO (13:36)
--- NOTE | 2018-12-22 13:54 | PDOCDIS ---
Discharge Instructions CONDITION [id number] Patient Condition: [id number] Stable HOME CARE INSTRUCTIONS: [id number] Diet Instructions: [id number] ACTIVITY: [id number] Activity Restrictions: [id number] Slowly Increase Activity Rest between Activity No Sexual Activity Do not Drive Do not operate Machinery Do not operate Power Tool Avoid Heavy Housework [id number] Bathing Restrictions: [id number] FOLLOW UP/APPOINTMENTS Follow-up Plan FU with Primary x 1 week FU with primary drafter cartographic or be referred to Dr Soto clinic within the next 2 to 3 days Call 911 or go to the hospital if symptoms get worse. Patient verbalized understanding dc instructions KRISTOFER MASON Dec 22, 2018 13:54
[2018-12-22 14:00] VITALS: BP 132/62; PULSE 96; RESP 18
--- NOTE | 2018-12-26 05:21 | DS ---
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 Kaushal Lutz- [employer] - discharge patient on Medoxyprogesterone and FU in clinic Patient Condition: Stable Hospital Course This is a 48-year-old female with a past medical history of uterine fibroids with previous episodes of significant uterine bleeding and anemia. Patient is currently on control pills and is admitted for 2 days of significant heavy menstrual bleeding with associated lightheadedness, general weak and fatigued. She is concerned about the amount of bleeding that she has had. The patient does not believe she could be . She does not believe she could have a sexually transmitted infection. The patient does not endorse dysuria or hematuria or urgency or frequency. She denies constipation or diarrhea. She denies black or bloody or tarry stools. The patient denies feeling sick recently. The patient denies fever or chills. The patient has had no headache or vision changes. The patient does not endorse neck or back pain. The patient has had no chest pain or trouble breathing. The patient denies nausea or vomiting. She denies diaphoresis. The patient has had no focal deficits. The patient has had no weakness or numbness or tingling to the face or extremities. Patient was admitted for further treatment/evaluation. Patient is evaluated by OBGYN and discharged in a stable condition Home Meds Active Scripts Medroxyprogesterone Acetate* (Medroxyprogesterone Acetate*) 10 Mg Tablet, 20 MG PO TID for 7 Days, TAB Prov:KRISTOFER MASON 12/22/18 Metronidazole* (Metrogel* Vaginal) 0.75% -70 Gram Gel.w.appl, 1 APPFUL VAG HS for 5 Days, TUB Prov:CAROLE FAJARDO PAGisell 11/24/15 Reported Medications Ibuprofen* (Ibuprofen*) 800 Mg Tab, 800 MG PO Q6H PRN for PAIN, TAB 12/21/18 Follow-up Plan FU with Primary x 1 week FU with primary non licensed operator or be referred to Dr Soto clinic within the next 2 to 3 days Call 911 or go to the hospital if symptoms get worse. Patient verbalized understanding dc instructions Primary Care Provider DO ISABELLA Hale RANBIR Dec 26, 2018 05:21
== END 2018-12-22 15:15 | disposition home or self-care (01) | DRG 812 ==
LOC: E/R 23:15 → PP2 12-21 00:54
PROVIDERS: ADMIT Internal Medicine; ATTEND Internal Medicine
PROC: 30233N1 Transfusion of Nonautologous Red Blood Cells into Peripheral Vein, Percutaneous Approach (ICD-10-PCS; principal; 2018-12-21)
DX: D62 Acute posthemorrhagic anemia (principal); N92.1 Excessive and frequent menstruation with irregular cycle; D25.0 Submucous leiomyoma of uterus
CPT/HCPCS: 36415; 36430; 76830; 76856; 80048; 81025; 83540; 84439; 84443; 85014; 85018; 85025; 85384; 85610; 85730; 86850; 86900; 86901; 86920; 93005; 96360; J7030; J7040; P9016